=== PATIENT | male | born 1985 | race Caucasian/White ===

== ENCOUNTER 2019-03-01 18:02 | Emergency (ER) | payer SELFPAY, OTHER ==
[2019-03-01] MEDS: KETOROLAC 30 MG INJ IM (20:38)
== END 2019-03-01 21:15 | disposition home or self-care (01) ==
LOC: FTE 18:02
DX: S16.1XXA Strain of muscle, fascia and tendon at neck level, initial encounter (principal); S39.012A Strain of muscle, fascia and tendon of lower back, initial encounter; V43.52XA Car driver injured in collision with other type car in traffic accident, initial encounter
CPT/HCPCS: 96372; 99284-25; J1885